=== PATIENT | male | born 1965 | race Caucasian/White ===

== ENCOUNTER → 2019-07-13 | Day surgery (SDC) | payer MEDICARE ==
[~2019-07-13] MED LIST: ALBUTEROL SULFATE 2.5 MG/3 ML NEBU. NEB PRN; BUDE10.2 IH; DEXT15TA PO; EPINEPHrine 1 MG/ML VIAL INJ PRN; EPINEPHrine 1 MG/ML VIAL ONE; FENT1PAT90 TD; FENT1PAT91 TD; FLUT1DIS3 IH; HYDR-2679 PO; HYDR-3164 PEG; LEVO500T59 PO; LIDOCAINE 1% Multi-Dose 20 ML VIAL. INJ PRN; LIDOCAINE 1% Multi-Dose 20 ML VIAL. ONE; LIDOCAINE 2% PF 5 ML VIAL. ONE; LIDOCAINE 2% VISCOUS 100 ML BOTTLE. MM PRN; LIDOCAINE 2% VISCOUS 100 ML BOTTLE. ONE; LIDOCAINE 4% TOPICAL 50 ML SOLUTION. MM PRN; LIDOCAINE 4% TOPICAL 50 ML SOLUTION. ONE; MAG MM; METO25TA4 PO; Metoprolol Tartrate PO; NIVO100V IV; NYST100054 SWSW; OXYC1TAB15 PO; PROM118S5 PO; PROPOFOL 20 ML IV ONE; SUCR1ORA11 PO; TAMS0.4C97 PO; Trazodone Hcl PEG; VENTOLIN HFA18 GM INH
--- NOTE | 2019-07-13 14:31 | PDOC4 ---
PROCEDURE Procedure BRONCH BAL PERFORMED NO ENDOBRONCHIAL LESION DICATED LORENZO REDDY MD Jul 13, 2019 14:31
[2019-07-13 15:10] VITALS: BP 137/67
--- NOTE | 2019-07-13 15:38 | OP ---
DATE OF SURGERY: 07/13/2019 PROCEDURE: Bronchoscopy, bronchoalveolar lavage. INDICATIONS: The patient with advanced lung cancer, in an experimental protocol, undergoing a diagnostic bronchoscopy. Recent CT revealed bilateral pulmonary infiltrates of unknown etiology, possibly related to his Opdivo. Risks, benefits, and alternatives reviewed with the patient, he consented. DESCRIPTION OF PROCEDURE: A timeout was performed prior to initiating the procedure. The bronchoscope was passed through the right naris. The vocal cords were identified moving bilaterally without any dysfunction. The vocal cords were anesthetized with a total of 5 mL of 4% lidocaine. The bronchoscope was passed through the vocal cords, the proximal trachea and the distal trachea was normal. The right and left segments and subsegments were visualized. There were no endobronchial lesions. A bronchoalveolar lavage of the left lower lobe was performed. The scope was advanced to the right side, the right lower lobe segment was identified. A bronchoalveolar lavage was likewise performed, the return was clear. The opening to the right upper lobe appeared to be slightly deformed. No endobronchial lesions were visualized. The patient tolerated procedure well with no immediate complications. FINDINGS: 1. Normal vocal cords. 2. No endobronchial lesion. 3. No purulent material. PLAN: We will await the BAL results. LORENZO REDDY MD DR: IBAN/salma JOB#: [id number] / [id number] SUMANTH Neil MD, STEPHEN MD
--- NOTE | 2019-07-14 19:07 | PATHOLOGY ---
Note [facility] Accession Number: [id number] TESTS RESULT FLAG UNITS REF RANGE LAB Clinician Provided Cytology Information No. of containers..01 Other (Miscellaneous) Source: RLL BAL DIAGNOSIS: 02 RLL BAL NEGATIVE FOR MALIGNANT CELLS. FOCALLY REACTIVE BRONCHIAL CELLS AND PULMONARY MACROPHAGES PRESENT. PULMONARY MACROPHAGES (DUST CELLS) ARE PRESENT. SILVER METHENAMINE STAINED SMEARS ARE NEGATIVE FOR PNEUMOCYSTIS JIROVECI. NO FUNGAL ORGANISMS ARE PRESENT. Signed out by: 02 Frederick Patel MD, Pathologist NPI- [id number] Performed by: Shane Hurst, Sales Vendor ([facility]) Gross description: 01 5ML, COLORLESS, CLOUDY /LCS FLAG LEGEND: L-Low Normal,H-High Normal,LL-Alert Low,HH-Alert High <-Panic Low,>-Panic High,A-Abnormal,AA-Critical Abnormal Performed at: [facility] [address] [place] [address] Shant Mayer MD, 02 [facility] [address] [place] [address] Frederick Patel MD, Specimen Comment: [id number] Specimen Comment: A duplicate report has been generated due to demographic updates. Performed at: [address] [place] [address] [address], [place], [place] [id number] MD Shant Mayer MD Phone: [phone]
--- NOTE | 2019-07-14 19:07 | PATHOLOGY ---
Note [facility] Accession Number: [id number] TESTS RESULT FLAG UNITS REF RANGE LAB Clinician Provided Cytology Information No. of containers..01 Other (Miscellaneous) Source: LLL BAL DIAGNOSIS: LLL BAL NEGATIVE FOR MALIGNANT CELLS. FOCALLY REACTIVE BRONCHIAL CELLS AND PULMONARY MACROPHAGES PRESENT. PULMONARY MACROPHAGES (DUST CELLS) ARE PRESENT. CURSCHMANN'S SPIRALS ARE PRESENT. SILVER METHENAMINE STAINED SMEARS ARE NEGATIVE FOR PNEUMOCYSTIS JIROVECI. NO FUNGAL ORGANISMS ARE PRESENT. Signed out by: 02 Frederick Patel MD, Pathologist NPI- [id number] Performed by: Shane Hurst, Drinking Water Technician ([facility]) Gross description: 01 5ML, COLORLESS, CLOUDY /LCS FLAG LEGEND: L-Low Normal,H-High Normal,LL-Alert Low,HH-Alert High <-Panic Low,>-Panic High,A-Abnormal,AA-Critical Abnormal Performed at: [facility] [address] [place] [address] Shant Mayer MD, 02 [facility] [address] [place] [address] Frederick Patel MD, Specimen Comment: A courtesy copy of this report has been sent to Specimen Comment: [phone], . Specimen Comment: [id number] Specimen Comment: Report sent to and Specimen Comment: A duplicate report has been generated due to demographic updates. Performed at: [address], [place] [id number] MD Shant Mayer MD Phone: [phone]
== END ==
LOC: SURG 12:16
PROVIDERS: ATTEND Internal Medicine Pulmonary Disease
DX: J98.4 Other disorders of lung (principal)
CPT/HCPCS: 31624; 86713; 87070; 87102; 87116; 87205; 88112; 88312; 94640; J2001; J2704; J7613; 31622; J0171

== ENCOUNTER → 2019-07-28 | Outpatient (CLI) | payer MEDICARE ==
[2019-07-13 15:10] VITALS: BP 137/67
[~2019-07-28] MED LIST changes: -ALBUTEROL SULFATE 2.5 MG/3 ML NEBU. NEB PRN; -EPINEPHrine 1 MG/ML VIAL INJ PRN; -EPINEPHrine 1 MG/ML VIAL ONE; -LIDOCAINE 1% Multi-Dose 20 ML VIAL. INJ PRN; -LIDOCAINE 1% Multi-Dose 20 ML VIAL. ONE; -LIDOCAINE 2% PF 5 ML VIAL. ONE; -LIDOCAINE 2% VISCOUS 100 ML BOTTLE. MM PRN; -LIDOCAINE 2% VISCOUS 100 ML BOTTLE. ONE; -LIDOCAINE 4% TOPICAL 50 ML SOLUTION. MM PRN; -LIDOCAINE 4% TOPICAL 50 ML SOLUTION. ONE; -PROPOFOL 20 ML IV ONE
--- NOTE | 2019-07-28 16:50 | RAD ---
CHEST PA LATERAL History: Shortness of air Comparison: AP chest July 04 04/03/2015. Findings: Right chest Port-A-Cath, tip in upper right atrium. The cardiomediastinal silhouette is normal. There are bilateral perihilar airspace opacities, worse on the left. No pleural effusion or pneumothorax is seen. There is diffuse demineralization. IMPRESSION: There are left worse than right perihilar infiltrates. Electronically signed by: Shane Vidal MD (07/28/2019 4:47 PM) [id number]
== END | disposition home or self-care (01) ==
LOC: RAD 09:57
PROVIDERS: ATTEND Internal Medicine Pulmonary Disease
DX: R91.8 Other nonspecific abnormal finding of lung field (principal)
CPT/HCPCS: 71046

== ENCOUNTER → 2022-02-13 | Day surgery (SDC) | payer MEDICARE ==
[~2022-02-13] VITALS: Ht 172.7 cm; Wt 99.0 kg
[~2022-02-13] MED LIST changes: +LEVO150T5 PO; -NIVO100V IV; +PROPOFOL 50 ML IV ONE; -SUCR1ORA11 PO; +SUCR1ORA14 PO; +[UNRECOGNIZED DRUG - CODE] IV
[2022-02-13 07:00] VITALS: BP_SYST 143; BP_SYST 172; BP_DIAS 126; BP_DIAS 77
[2022-02-13 08:11] VITALS: BP 141/65
--- NOTE | 2022-02-16 18:06 | PATHOLOGY ---
[facility] Accession Number: [id number] . 01 Material submitted: . PART A: stomach - GASTRIC ANTRUM BIOPSY PART B: cecum - CECAL POLYP BIOPSY PART C: colon - TRANSVERSE COLON POLYP. Modifiers: transverse . 01 Clinical history: . N/V, BELCHING, HX OF POLYPS GASTRITIS/ULCERATIONS . 02 Diagnosis: A. Gastric biopsy, antrum: - Acute and chronic gastritis with focal mucosal necrosis and with Helicobacter organisms identified. . B. Colon biopsies, cecal polyp: - Tubular adenoma. . C. Colon biopsies, transverse colon polyp: - Tubular adenoma. - Vegetable material. LBQ 02/16/2022 1627 Local . 02 Comment: Sections of the gastric biopsy reveal gastric antral mucosa showing congestion, hemorrhage, and acute and chronic inflammation with focal mucosal necrosis. A properly controlled immunoperoxidase stain for Helicobacter reveals focal small numbers of Helicobacter organisms. There is no evidence of malignancy. . Sections of the cecal polyp and transverse colon polyp biopsies reveal tubular adenomas showing no high grade dysplasia or evidence of malignancy. (JPM/db; 02/16/2022) . Special stain performed: Immunoperoxidase stain for Helicobacter on A1 . 02 Electronically signed: . Frederick Patel MD, Pathologist NPI- [id number] . 01 Gross description: . A. Received in formalin labeled "BeltrePedro Luis victoria, gastric antrum biopsy" are multiple beckett-brown soft tissue fragments measuring in aggregate 0.9 x 0.4 x 0.2 cm. The specimen is submitted entirely in A1. . B. Received in formalin labeled "BeltrePedro Luis cecal polyp biopsy" are multiple beckett-brown soft tissue fragments measuring in aggregate 1.1 x 0.3 x 0.3 cm. The specimen is submitted entirely in B1. . C. Received in formalin labeled "Pedro Luis Beltre transverse colon polyp" are multiple beckett-brown soft tissue fragments measuring in aggregate 1.9 x 0.4 x 0.3 cm. The specimen is submitted entirely in C1. ([facility]; 02/14/2022) . GZA/GZA 02/14/2022 1404 Local . 02 Pathologist provided ICD-10: K29.50, K31.89, D12.0, D12.3 . 02 CPT . 146586, 158633, [id number], [id number] Specimen Comment: A courtesy copy of this report has been sent to [phone], [phone] Specimen Comment: [phone] Specimen Comment: Report sent to / DR ARIAS Specimen Comment: A duplicate report has been generated due to demographic updates. Performed at: [facility] [address] [facility] [address] [id number] MD Michael Rothman MD Phone: [phone] Performed at: [facility] [address] [place], [place] [id number] MD Frederick Patel MD Phone: [phone]
== END | disposition home or self-care (01) ==
LOC: ENDOS 06:41
PROVIDERS: ATTEND Internal Medicine Gastroenterology
DX: Z12.11 Encounter for screening for malignant neoplasm of colon (principal); D12.0 Benign neoplasm of cecum; D12.3 Benign neoplasm of transverse colon; K29.50 Unspecified chronic gastritis without bleeding; K31.89 Other diseases of stomach and duodenum; K63.89 Other specified diseases of intestine; K64.0 First degree hemorrhoids; J44.9 Chronic obstructive pulmonary disease, unspecified; E66.9 Obesity, unspecified; M19.90 Unspecified osteoarthritis, unspecified site; E03.9 Hypothyroidism, unspecified; F41.9 Anxiety disorder, unspecified; Z87.891 Personal history of nicotine dependence; Z79.899 Other long term (current) drug therapy; Z98.890 Other specified postprocedural states; Z88.0 Allergy status to penicillin; Z88.6 Allergy status to analgesic agent; Z88.8 Allergy status to other drugs, medicaments and biological substances; Z90.49 Acquired absence of other specified parts of digestive tract; Z82.49 Family history of ischemic heart disease and other diseases of the circulatory system; Z83.3 Family history of diabetes mellitus
CPT/HCPCS: 43239; 43450; 45380; 45385; 88305; 88342; J2704